=== PATIENT | male | born 1940 | race Caucasian/White ===

== ENCOUNTER → 2016-10-05 | Outpatient (CLI) | payer MEDICARE, OTHER ==
[2016-10-05 09:21] LABS: HEMOGLOBIN 13.6 g/dL (13.5-17.0); HGB HCT DIFFERENCE -0.2; MEAN CORPUSCULAR HEMOGLOBIN 28.5 pg (27.0-33.4); MEAN CORPUSCULAR HGB CONC 33.2 g/dL (32.0-36.0); MEAN CORPUSCULAR VOLUME 86 fl (80-97); RED BLOOD COUNT 4.77 10^6/uL (4.35-5.55); RED CELL DISTRIBUTION WIDTH 15.1 % (11.5-14.0); WHITE BLOOD COUNT 10.3 10^3/uL (4.0-10.5)
[2016-10-05 09:58] LABS: ALANINE AMINOTRANSFERASE 31 U/L (21-72); ALBUMIN 4.4 g/dL (3.5-5.0); ALKALINE PHOSPHATASE 79 U/L (38-126); ANION GAP 11 (5-19); ASPARTATE AMINO TRANSFERASE 18 U/L (17-59); BILIRUBIN,TOTAL 0.8 mg/dL (0.2-1.3); BLOOD UREA NITROGEN 23 mg/dL (7-20); CALCIUM 9.5 mg/dL (8.4-10.2); CARBON DIOXIDE 29 mmol/L (22-30); CHLORIDE 102 mmol/L (98-107); CHOLESTEROL 227.36 mg/dL (0-200); Direct HDL 51 mg/dL (>40); GLUCOSE 169 mg/dL (75-110); POTASSIUM 4.7 mmol/L (3.6-5.0); SODIUM 141.6 mmol/L (137-145); TOTAL PROTEIN 6.9 g/dL (6.3-8.2); TRIGLYCERIDES 189 mg/dL (<150)
[2016-10-05 10:09] LABS: DIRECT LDL 164 mg/dL (<100)
[2016-10-05 10:14] LABS: VLDL CHOLESTEROL 37.8 mg/dL (10-31)
== END ==
LOC: OD 08:18
PROVIDERS: ATTEND Internal Medicine Cardiovascular Disease
DX: I50.22 Chronic systolic (congestive) heart failure (principal); R06.02 Shortness of breath; I25.10 Atherosclerotic heart disease of native coronary artery without angina pectoris
CPT/HCPCS: 36415; 80053; 80061; 83880; 85027

== ENCOUNTER 2017-03-19 19:29 | Emergency (ER) | payer MEDICARE, OTHER ==
--- NOTE | 2017-03-19 20:12 | ER Document Report ---
ED Medical Screen (RME) - General Chief Complaint: High Blood Pressure Stated Complaint: WEAK,NOT FEELING WELL Time Seen by Provider: 03/19/17 20:07 Notes: Patient is a 76-year-old male who presents with his secondary to "not feeling well". Patient's states that he has been "more sleepy" at baseline. Patient has a history of dementia. Patient himself denies any complaints such as headache, nausea, vomiting, chest pain, abdominal pain, weakness or numbness. Patient has had no fevers, vomiting, diarrhea. states the patient's blood pressure has been recently elevated TRAVEL OUTSIDE OF THE [place] IN LAST 30 DAYS: No - Related Data Allergies/Adverse Reactions: atorvastatin calcium [From Lipitor] Adverse Reaction (Intermediate, Verified 19:57) myopathy Past Medical History - Past Medical History Cardiac Medical History: Reports: Hx Congestive Heart Failure, Hx Hypertension Renal/ Medical History: Denies: Hx Peritoneal Dialysis Psychiatric Medical History: Reports: Hx Dementia, Hx Depression Past Surgical History: Reports: Hx Cardiac Catheterization, Hx Cardiac Surgery - 5 bypass, Hx Coronary Stent - X2, last stent on 07/21/2015., Hx Gastric Bypass Surgery - 5 vessel CABG in 2002, Hx Open Heart Surgery - Immunizations Hx Diphtheria, Pertussis, Tetanus Vaccination: Yes Physical Exam - Vital signs Vitals: Temp Pulse Resp BP Pulse Ox 98 F 85 18 163/96 H 99 03/19/17 19:57 03/19/17 19:57 03/19/17 19:57 03/19/17 19:57 03/19/17 19:57 Course - Vital Signs Vital signs: Temp Pulse Resp BP Pulse Ox 98 F 85 18 163/96 H 99 03/19/17 19:57 03/19/17 19:57 03/19/17 19:57 03/19/17 19:57 03/19/17 19:57
--- NOTE | 2017-03-19 20:46 | RADIOLOGY REPORT (SQ) ---
EXAM DESCRIPTION: CHEST PA/LAT COMPLETED DATE/TIME: 03/19/2017 8:37 pm REASON FOR STUDY: PIT; weakness COMPARISON: August 2015 EXAM PARAMETERS: NUMBER OF VIEWS: two views TECHNIQUE: Digital Frontal and Lateral radiographic views of the chest acquired. RADIATION DOSE: NA LIMITATIONS: none FINDINGS: LUNGS AND PLEURA: No opacities, masses or pneumothorax. No pleural effusion. MEDIASTINUM AND HILAR STRUCTURES: No masses or contour abnormalities. HEART AND VASCULAR STRUCTURES: The configuration of the heart and mediastinal structures is unchanged . Tortuous calcified thoracic aorta is again identified. BONES: No acute findings. HARDWARE: AICD device is unchanged in position. Patient is status post median sternotomy. OTHER: Some elevation of the left hemidiaphragm is again identified. IMPRESSION: No significant interval change. No acute findings. Other findings as noted above TECHNICAL DOCUMENTATION: JOB ID: [id number] [employer]- All Rights Reserved
--- NOTE | 2017-03-19 21:31 | ER Document Report ---
ED Blood Pressure Problem - General Chief Complaint: High Blood Pressure Stated Complaint: BLOOD PRESSURE PROBLEM Time Seen by Provider: 03/19/17 20:07 Mode of Arrival: Ambulatory Information source: Patient, Relative TRAVEL OUTSIDE OF THE [place] IN LAST 30 DAYS: No - HPI Patient complains to provider of: High blood pressure Onset: This morning Onset/Duration: Gradual Quality of pain: No pain Notes: 76-year-old male who presents to the emergency room with his who reports that he was slightly more confused than normal this morning, and he slept slightly more than normal today as well, earlier this morning he was complaining of some abdominal pain, but had no nausea, vomiting or diarrhea, no chest pain or shortness of breath, no dysuria or hematuria, no change in urinary frequency, he has no complaints at time of my evaluation, his at bedside is him on the supplied most of the information - Related Data Allergies/Adverse Reactions: atorvastatin calcium [From Lipitor] Adverse Reaction (Intermediate, Verified 19:57) myopathy Past Medical History - General Information source: Patient - Social History Smoking Status: Former Smoker Family History: Reviewed & Not Pertinent Patient has suicidal ideation: No Patient has homicidal ideation: No - Past Medical History Cardiac Medical History: Reports: Hx Congestive Heart Failure, Hx Hypertension Renal/ Medical History: Denies: Hx Peritoneal Dialysis Psychiatric Medical History: Reports: Hx Dementia, Hx Depression Past Surgical History: Reports: Hx Cardiac Catheterization, Hx Cardiac Surgery - 5 bypass, Hx Coronary Stent - X2, last stent on 07/21/2015., Hx Gastric Bypass Surgery - 5 vessel CABG in 2002, Hx Open Heart Surgery - Immunizations Hx Diphtheria, Pertussis, Tetanus Vaccination: Yes Review of Systems - Review of Systems Constitutional: Malaise, Weakness EENT: No symptoms reported Cardiovascular: No symptoms reported Respiratory: No symptoms reported Gastrointestinal: See HPI Genitourinary: No symptoms reported Male Genitourinary: No symptoms reported Musculoskeletal: No symptoms reported Skin: No symptoms reported Hematologic/Lymphatic: No symptoms reported Neurological/Psychological: No symptoms reported -: Yes All other systems reviewed and negative Physical Exam - Vital signs Vitals: Temp Pulse Resp BP Pulse Ox 98 F 85 18 163/96 H 99 03/19/17 19:57 03/19/17 19:57 03/19/17 19:57 03/19/17 19:57 03/19/17 19:57 Interpretation: Hypertensive - General General appearance: Appears well, Alert - HEENT Head: Normocephalic, Atraumatic Eyes: Normal Pupils: PERRL - Respiratory Respiratory status: No respiratory distress Chest status: Nontender Breath sounds: Normal Chest palpation: Normal - Cardiovascular Rhythm: Regular Heart sounds: Normal auscultation Murmur: No - Abdominal Inspection: Normal Distension: No distension Bowel sounds: Normal Tenderness: Nontender Organomegaly: No organomegaly - Back Back: Normal, Nontender - Extremities General upper extremity: Normal inspection, Nontender, Normal color, Normal ROM , Normal temperature General lower extremity: Normal inspection, Nontender, Normal color, Normal ROM , Normal temperature, Normal weight bearing. No: Gil's sign - Neurological Neuro grossly intact: Yes Cognition: Normal Orientation: AAOx4 [place] Coma Scale Eye Opening: Spontaneous [place] Coma Scale Verbal: Oriented [place] Coma Scale Motor: Obeys Commands [place] Coma Scale Total: 15 Speech: Normal Motor strength normal: LUE, RUE, LLE, RLE Sensory: Normal - Psychological Associated symptoms: Normal affect, Normal mood - Skin Skin Temperature: Warm Skin Moisture: Dry Skin Color: Normal Course - Re-evaluation Re-evalutation: 03/19/17 23:53 Physical exam findings are unremarkable, abdomen is soft and nontender, in fact patient laughed while I was palpating his abdomen as I was apparently tickling him, vital signs are stable with an improved blood pressure while in the emergency room, findings were discussed with patient and spouse at bedside, he was advised to follow-up with his primary care provider or return if any additional concerns, patient and acknowledge understanding and agreement with this plan - Vital Signs Vital signs: Temp Pulse Resp BP Pulse Ox 98 F 85 26 H 190/96 H 98 03/19/17 19:57 03/19/17 19:57 03/19/17 23:00 03/19/17 23:00 03/19/17 23:00 - Laboratory Result Diagrams: 03/19/17 21:16 03/19/17 20:25 Laboratory results interpreted by me: 03/19/17 03/19/17 03/19/17 20:25 20:25 21:16 Hgb 12.9 L RDW 15.1 H BUN 23 H Glucose 127 H NT-Pro-B Natriuret Pep 3730 H - Diagnostic Test Radiology reviewed: Image reviewed, Reports reviewed Discharge - Discharge Clinical Impression: Generalized weakness Condition: Stable Disposition: HOME, SELF-CARE Instructions: High Blood Pressure ([facility]) Additional Instructions: Follow up with your primary care provider in one to 2 days. Return to the emergency room immediately if symptoms worsen or any additional concerns.
[2017-03-19 21:35] LABS: ABSOLUTE BASOPHILS # (AUTO) 0.1 10^3/uL (0.0-0.2); ABSOLUTE EOSINOPHILS # (AUTO) 0.3 10^3/uL (0.0-0.6); ABSOLUTE LYMPHOCYTES (AUTO) 2.8 10^3/uL (0.5-4.7); ABSOLUTE MONOCYTES (AUTO) 0.8 10^3/uL (0.1-1.4); ABSOLUTE NEUT (AUTO) 6.4 10^3/uL (1.7-8.2); BASOPHILS % (AUTO) 1.1 % (0-2); EOSINOPHILS % (AUTO) 2.8 % (0-6); HEMATOCRIT 39.3 % (37.9-51.0); HEMOGLOBIN 12.9 g/dL (13.5-17.0); HGB HCT DIFFERENCE -0.6; LYMPHOCYTES % (AUTO) 26.5 % (13-45); MEAN CORPUSCULAR HEMOGLOBIN 28.2 pg (27.0-33.4); MEAN CORPUSCULAR HGB CONC 32.8 g/dL (32.0-36.0); MEAN CORPUSCULAR VOLUME 86 fl (80-97); MONOCYTES % (AUTO) 7.9 % (3-13); RED BLOOD COUNT 4.56 10^6/uL (4.35-5.55); RED CELL DISTRIBUTION WIDTH 15.1 % (11.5-14.0); SEGMENTED NEUTROPHILS % (AUTO) 61.7 % (42-78); WHITE BLOOD COUNT 10.4 10^3/uL (4.0-10.5)
[2017-03-19 22:02] LABS: ANION GAP 11 (5-19); BLOOD UREA NITROGEN 23 mg/dL (7-20); CALCIUM 9.3 mg/dL (8.4-10.2); CARBON DIOXIDE 26 mmol/L (22-30); CHLORIDE 102 mmol/L (98-107); CREATININE RESULT 1.06 mg/dL (0.52-1.25); GLUCOSE 127 mg/dL (75-110); POTASSIUM 4.8 mmol/L (3.6-5.0); SODIUM 138.8 mmol/L (137-145)
--- NOTE | 2017-03-19 22:04 | EKG REPORT ---
SEVERITY:- ABNORMAL ECG - A-V DUAL-PACED COMPLEXES W/ SOME INHIBITION VPCs : Confirmed by: Mitchell Wagner 19-Mar-2017 22:03:56
[2017-03-19 22:14] LABS: TROPONIN I 0.018 ng/mL
[2017-03-19 23:01] VITALS: BP 190/96
== END 2017-03-19 23:10 | disposition home or self-care (01) ==
LOC: ER 19:29
DX: R53.1 Weakness (principal); R53.81 Other malaise; R41.0 Disorientation, unspecified; I10 Essential (primary) hypertension; Z95.1 Presence of aortocoronary bypass graft; Z98.61 Coronary angioplasty status; Z98.84 Bariatric surgery status
CPT/HCPCS: 36415; 71020; 80048; 83880; 84484; 85025; 93005; 93010; 99284

== ENCOUNTER 2018-10-06 22:16 | Emergency (ER) | payer MEDICARE, OTHER ==
--- NOTE | 2018-10-06 23:33 | ER Document Report ---
ED General - General Chief Complaint: Chest Pain Stated Complaint: POSSIBLE ASSAULT/CHEST PAIN Time Seen by Provider: 10/06/18 23:33 Mode of Arrival: Ambulatory Information source: Parent, Relative Notes: HISTORY OF PRESENT ILLNESS: Patient is a 78-year-old male with a past medical history of advanced dementia who presents with behavior changes and acute agitation. Location: Global Onset: Chronic Provocation: "I do not know why he has these episodes" Quality: Aggression Radiation: None Severity: Severe Timing: Intermittent REVIEW OF SYSTEMS: CONSTITUTIONAL : Denies fever or chills, no sweats. Denies recent illness. EENT: Denies eye, ear, throat, or mouth pain or symptoms. Denies nasal or sinus congestion. CARDIOVASCULAR: Denies chest pain. RESPIRATORY: Denies cough, cold, or chest congestion. Denies shortness of breath, difficulty breathing, or wheezing. GASTROINTESTINAL: Denies abdominal pain. Denies nausea, vomiting, or diarrhea. Denies constipation. GENITOURINARY: Denies difficulty urinating, painful urination, burning, frequency, or blood in urine. MUSCULOSKELETAL: Denies neck or back pain or joint pain or swelling. SKIN: Denies rash or skin lesions. HEMATOLOGIC : Denies easy bruising or bleeding. LYMPHATIC: Denies swollen, enlarged glands. NEUROLOGICAL: Denies altered mental status or loss of consciousness. Denies headache. Denies weakness or paralysis or loss of use of either side. Denies problems with gait or speech. Denies sensory or motor loss. PSYCHIATRIC: Positive for episodic agitation/aggression. Denies anxiety or stress or depression. All other systems reviewed and negative. PHYSICAL EXAMINATION: GENERAL: Well-appearing, well-nourished and in no acute distress. HEAD: Atraumatic, normocephalic. No scalp deformity, depression, or crepitance. EYES: Pupils are 3 mm and equal/round/reactive to light, extraocular movements intact, sclera anicteric, conjunctiva are normal. ENT: Nares patent bilaterally, oropharynx clear without exudates or palatal petechia. Moist mucous membranes. No tonsil hypertrophy. NECK: Normal range of motion, supple without lymphadenopathy. LUNGS: Breath sounds present, equal, and clear to auscultation bilaterally. No wheezes, rales, or rhonchi. HEART: Regular rate and rhythm without murmurs, rubs, or gallops. 2+ peripheral pulses. Normal capillary refill. ABDOMEN: Soft, nontender, nondistended. Normoactive bowel sounds. No guarding, no rebound. No masses appreciated. BACK: Normal contour, no midline tenderness. Rectal exam deferred. GENITAL: Deferred. EXTREMITIES: Normal range of motion, no pitting or edema. No cyanosis. NEUROLOGICAL: No focal neurological deficits. Moves all extremities spontaneously and on command. PSYCH: Normal mood, flat affect. No suicidal thoughts/ideations. No homocidal thoughts/ideations. No hallucinations. SKIN: Warm, dry, normal turgor, no rashes or lesions noted. ASSESSMENT AND PLAN: This patient is a 78-year-old male who presents with acute on chronic agitation secondary to his advanced dementia. 1. Will give oral Haldol and reassess. 2. Will likely discharge home. TRAVEL OUTSIDE OF THE [place] IN LAST 30 DAYS: No - Related Data Allergies/Adverse Reactions: atorvastatin calcium [From Lipitor] Adverse Reaction (Intermediate, Verified 03/19/17 19:57) myopathy Past Medical History - General Information source: Patient, Relative Cannot obtain history due to: Other - Advanced dementia - Social History Smoking Status: Unknown if Ever Smoked Chew tobacco use (# tins/day): No Frequency of alcohol use: None Drug Abuse: None Lives with: Family Family History: Reviewed & Not Pertinent Patient has suicidal ideation: No Patient has homicidal ideation: No - Past Medical History Cardiac Medical History: Reports: Hx Congestive Heart Failure, Hx Hypertension Pulmonary Medical History: Reports: Hx COPD EENT Medical History: Reports: None Neurological Medical History: Reports: None Endocrine Medical History: Reports: None Renal/ Medical History: Reports: None. Denies: Hx Peritoneal Dialysis Malignancy Medical History: Reports None GI Medical History: Reports: None Musculoskeletal Medical History: Reports None Skin Medical History: Reports None Psychiatric Medical History: Reports: Hx Dementia, Hx Depression Traumatic Medical History: Reports: None Infectious Medical History: Reports: None Past Surgical History: Reports: Hx Cardiac Catheterization, Hx Cardiac Surgery - 5 bypass, Hx Coronary Stent - X2, last stent on 07/21/2015., Hx Gastric Bypass Surgery - 5 vessel CABG in 2002, Hx Open Heart Surgery - Immunizations Immunizations up to date: Yes Hx Diphtheria, Pertussis, Tetanus Vaccination: Yes Physical Exam - Vital signs Vitals: Temp 98.6 F 10/06/18 22:22 Course - Vital Signs Vital signs: Temp Pulse Resp BP Pulse Ox 98.6 F 10/06/18 22:22 Discharge - Discharge Clinical Impression: Advanced dementia Condition: Good Disposition: HOME, SELF-CARE Instructions: Dementia ([facility]) Additional Instructions: You have been evaluated in the Emergency Department for behavioral changes. Please follow-up with your primary physician as instructed in 1-2 weeks. Return to the Emergency Department if you experience increased aggression, hallucinations, thoughts of hurting yourself or other people, or any other concerning symptoms. Prescriptions: Haloperidol [Haldol 5 mg Tablet] 5 mg PO BID PRN #30 tablet PRN Reason: Anxiety/Agitation Referrals: ARNOLDO WHIPPLE MD [NO LOCAL MD] - Follow up as needed Print Language: Yi
[2018-10-07] MEDS ORDERED: HALOPERIDOL 5 MG TABLET PO ONE (00:05)
[2018-10-07 01:24] VITALS: BP 184/78
--- NOTE | 2018-10-07 21:35 | EKG REPORT ---
SEVERITY:- ABNORMAL ECG - ATRIAL-SENSED VENTRICULAR-PACED COMPLEXES INCOMPLETE RBBB AND LAFB : Confirmed by: Mitchell Wagner 07-Oct-2018 21:34:53
== END 2018-10-07 01:24 | disposition home or self-care (01) ==
LOC: ER 22:16
DX: F03.90 Unspecified dementia, unspecified severity, without behavioral disturbance, psychotic disturbance, mood disturbance, and anxiety (principal); R07.9 Chest pain, unspecified; R45.1 Restlessness and agitation; I50.9 Heart failure, unspecified; I10 Essential (primary) hypertension; J44.9 Chronic obstructive pulmonary disease, unspecified
CPT/HCPCS: 93005; 99285; 93010; A9270

== ENCOUNTER 2018-10-07 11:29 | Emergency (ER) | payer MEDICARE, OTHER ==
--- NOTE | 2018-10-07 12:52 | ER Document Report ---
ED Medical Screen (RME) - General Chief Complaint: Other Stated Complaint: SHORT OF BREATH Time Seen by Provider: 10/07/18 12:29 Notes: 78-year-old male to the emergency department for evaluation of pacemaker going off. Reportedly pacemaker fired 3 times yesterday and then 2 more times after midnight so a total of 5 discharges according to the cardiology office the called the patient this morning to report the defibrillated events. Apparently patient was in the ER last night because of erratic behavior. Patient has dementia. Denies any complaints at this time. I have greeted and performed a rapid initial assessment of this patient. A comprehensive ED assessment and evaluation of the patient, analysis of test results and completion of the medical decision making process will be conducted by additional ED providers. TRAVEL OUTSIDE OF THE [place] IN LAST 30 DAYS: No - Related Data Allergies/Adverse Reactions: atorvastatin calcium [From Lipitor] Adverse Reaction (Intermediate, Verified 10/07/18 11:48) myopathy Past Medical History - Past Medical History Cardiac Medical History: Reports: Hx Congestive Heart Failure, Hx Hypertension Pulmonary Medical History: Reports: Hx COPD Renal/ Medical History: Denies: Hx Peritoneal Dialysis Psychiatric Medical History: Reports: Hx Dementia, Hx Depression Past Surgical History: Reports: Hx Cardiac Catheterization, Hx Cardiac Surgery - 5 bypass, Hx Coronary Stent - X2, last stent on 07/21/2015., Hx Gastric Bypass Surgery - 5 vessel CABG in 2002, Hx Open Heart Surgery - Immunizations Immunizations up to date: Yes Hx Diphtheria, Pertussis, Tetanus Vaccination: Yes
[2018-10-07 13:20] LABS: ABSOLUTE BASOPHILS # (AUTO) 0.1 10^3/uL (0.0-0.2); ABSOLUTE EOSINOPHILS # (AUTO) 0.1 10^3/uL (0.0-0.6); ABSOLUTE LYMPHOCYTES (AUTO) 2.1 10^3/uL (0.5-4.7); ABSOLUTE MONOCYTES (AUTO) 0.8 10^3/uL (0.1-1.4); ABSOLUTE NEUT (AUTO) 6.9 10^3/uL (1.7-8.2); BASOPHILS % (AUTO) 0.9 % (0-2); EOSINOPHILS % (AUTO) 0.8 % (0-6); HEMATOCRIT 41.1 % (37.9-51.0); LYMPHOCYTES % (AUTO) 21.2 % (13-45); MEAN CORPUSCULAR HEMOGLOBIN 29.2 pg (27.0-33.4); MEAN CORPUSCULAR HGB CONC 34.1 g/dL (32.0-36.0); MEAN CORPUSCULAR VOLUME 86 fl (80-97); MONOCYTES % (AUTO) 8.2 % (3-13); PLATELET COUNT 197 10^3/uL (150-450); RED BLOOD COUNT 4.78 10^6/uL (4.35-5.55); SEGMENTED NEUTROPHILS % (AUTO) 68.9 % (42-78); TOTAL CELLS COUNTED % (AUTO) 100 %
[2018-10-07 13:38] LABS: ALANINE AMINOTRANSFERASE 18 U/L (21-72); ALBUMIN 4.6 g/dL (3.5-5.0); ALKALINE PHOSPHATASE 87 U/L (38-126); ANION GAP 11 (5-19); ASPARTATE AMINO TRANSFERASE 28 U/L (17-59); BILIRUBIN,DIRECT 0.3 mg/dL (0.0-0.4); BILIRUBIN,TOTAL 0.8 mg/dL (0.2-1.3); BLOOD UREA NITROGEN 22 mg/dL (7-20); CALCIUM 9.7 mg/dL (8.4-10.2); CARBON DIOXIDE 29 mmol/L (22-30); CHLORIDE 102 mmol/L (98-107); CREATINE KINASE 139 U/L (55-170); GLUCOSE 207 mg/dL (75-110); POTASSIUM 4.5 mmol/L (3.6-5.0); SODIUM 141.8 mmol/L (137-145); TOTAL PROTEIN 7.2 g/dL (6.3-8.2)
[2018-10-07 13:49] LABS: CREATINE KINASE MB 4.62 ng/mL (<4.55)
[2018-10-07 13:52] LABS: TROPONIN I 0.344 ng/mL
[2018-10-07 14:40] LABS: APPEARANCE,URINE CLEAR; BILIRUBIN,URINE NEGATIVE (NEGATIVE); COLOR,URINE YELLOW; GLUCOSE, URINE NEGATIVE (NEGATIVE); KETONES,URINE NEGATIVE (NEGATIVE); LEUKOCYTE ESTERASE,URINE NEGATIVE (NEGATIVE); NITRITE,URINE NEGATIVE (NEGATIVE); PROTEIN,URINE NEGATIVE (NEGATIVE); URINE SPECIFIC GRAVITY 1.016; UROBILINOGEN,URINE NEGATIVE mg/dL (<2.0)
[2018-10-07] MEDS ORDERED: ASPIRIN 81 MG TABLET, CHEWABLE PO ONE (14:42)
--- NOTE | 2018-10-07 14:47 | ER Document Report ---
ED General - General Chief Complaint: Other Stated Complaint: SHORT OF BREATH Time Seen by Provider: 10/07/18 12:29 Mode of Arrival: Ambulatory Information source: Patient, Relative, [facility] Records Cannot obtain history due to: Dementia Notes: 78-year-old male with hypertension, COPD, congestive heart failure, coronary artery disease with history of CABG and defibrillator placement presents via private vehicle from home after they received a call phone call from [facility] stating that the patient's defibrillator has gone off for times overnight. Patient's provides the history as the patient is uncooperative with questioning. Patient was seen here yesterday due to behavioral changes secondary to his dementia. He was seen, evaluated and discharged home. Patient denies any chest pain, shortness of breath, lower extremity edema. is at the bedside and states that the patient's behavior has progressively worsened. He is refusing to take his medications which include Plavix, lisinopril, Lasix, carvedilol. Patient denies feeling any defibrillator shocks. TRAVEL OUTSIDE OF THE [place] IN LAST 30 DAYS: No - HPI Onset: Other Quality of pain: No pain Severity: None Pain Level: Denies Associated symptoms: denies: Chest pain, Fever, Nausea, Vomiting, Shortness of breath Exacerbated by: Denies Relieved by: Denies Similar symptoms previously: Yes Recently seen / treated by doctor: Yes - Related Data Allergies/Adverse Reactions: atorvastatin calcium [From Lipitor] Adverse Reaction (Intermediate, Verified 10/07/18 11:48) myopathy Past Medical History - General Information source: Relative, [facility] Records Cannot obtain history due to: Dementia - Social History Smoking Status: Never Smoker Frequency of alcohol use: None Drug Abuse: None Lives with: Family Family History: Reviewed & Not Pertinent Patient has suicidal ideation: No Patient has homicidal ideation: No - Past Medical History Cardiac Medical History: Reports: Hx Congestive Heart Failure, Hx Hypertension Pulmonary Medical History: Reports: Hx COPD Renal/ Medical History: Denies: Hx Peritoneal Dialysis Psychiatric Medical History: Reports: Hx Dementia, Hx Depression Past Surgical History: Reports: Hx Cardiac Catheterization, Hx Cardiac Surgery - 5 bypass, Hx Coronary Stent - X2, last stent on 07/21/2015., Hx Gastric Bypass Surgery - 5 vessel CABG in 2002, Hx Open Heart Surgery - Immunizations Immunizations up to date: Yes Hx Diphtheria, Pertussis, Tetanus Vaccination: Yes Review of Systems - Review of Systems -: Yes ROS unobtainable due to patient's medical condition Physical Exam - Vital signs Vitals: Pulse Ox 99 10/07/18 13:09 - Notes Notes: PHYSICAL EXAMINATION: GENERAL: Well-appearing, well-nourished and in no acute distress. HEAD: Atraumatic, normocephalic. EYES: Pupils equal round and reactive to light, extraocular movements intact, sclera anicteric, conjunctiva are normal. ENT: Nares patent, oropharynx clear without exudates. Moist mucous membranes. NECK: Normal range of motion, supple without lymphadenopathy LUNGS: Breath sounds clear to auscultation bilaterally and equal. No wheezes rales or rhonchi. HEART: Regular rate and rhythm without murmurs ABDOMEN: Soft, nontender, nondistended abdomen. No guarding, no rebound. No masses appreciated. Musculoskeletal: Normal range of motion, no pitting or edema. No cyanosis. NEUROLOGICAL: Cranial nerves grossly intact. Normal speech normal sensory, motor exams. Alert and oriented x2 PSYCH: Uncooperative SKIN: Warm, Dry, normal turgor, no rashes or lesions noted. Course - Re-evaluation Re-evalutation: Laboratory 10/07/18 10/07/18 10/07/18 13:08 13:08 13:08 WBC 10.0 RBC 4.78 Hgb 14.0 Hct 41.1 MCV 86 MCH 29.2 MCHC 34.1 RDW 14.0 Plt Count 197 Seg Neutrophils % 68.9 Lymphocytes % 21.2 Monocytes % 8.2 Eosinophils % 0.8 Basophils % 0.9 Absolute Neutrophils 6.9 Absolute Lymphocytes 2.1 Absolute Monocytes 0.8 Absolute Eosinophils 0.1 Absolute Basophils 0.1 Sodium 141.8 Potassium 4.5 Chloride 102 Carbon Dioxide 29 Anion Gap 11 BUN 22 H Creatinine 1.07 Est GFR ( Amer) > 60 Est GFR (Non-Af Amer) > 60 Glucose 207 H Calcium 9.7 Total Bilirubin 0.8 Direct Bilirubin 0.3 Neonat Total Bilirubin Not Reportable Neonat Direct Bilirubin Not Reportable Neonat Indirect Bili Not Reportable AST 28 ALT 18 L Alkaline Phosphatase 87 Creatine Kinase 139 CK-MB (CK-2) 4.62 H Troponin I 0.344 Total Protein 7.2 Albumin 4.6 Urine Color Urine Appearance Urine pH Ur Specific [place] Urine Protein Urine Glucose (UA) Urine Ketones Urine Blood Urine Nitrite Urine Bilirubin Urine Urobilinogen Ur Leukocyte Esterase Urine WBC (Auto) Urine RBC (Auto) U Hyaline Cast (Auto) Urine Mucus (Auto) Urine Ascorbic Acid 10/07/18 10/07/18 14:00 14:50 WBC RBC Hgb Hct MCV MCH MCHC RDW Plt Count Seg Neutrophils % Lymphocytes % Monocytes % Eosinophils % Basophils % Absolute Neutrophils Absolute Lymphocytes Absolute Monocytes Absolute Eosinophils Absolute Basophils Sodium Potassium Chloride Carbon Dioxide Anion Gap BUN Creatinine Est GFR ( Amer) Est GFR (Non-Af Amer) Glucose Calcium Total Bilirubin Direct Bilirubin Neonat Total Bilirubin Neonat Direct Bilirubin Neonat Indirect Bili AST ALT Alkaline Phosphatase Creatine Kinase CK-MB (CK-2) Troponin I 0.322 Total Protein Albumin Urine Color YELLOW Urine Appearance CLEAR Urine pH 6.0 Ur Specific [place] 1.016 Urine Protein NEGATIVE Urine Glucose (UA) NEGATIVE Urine Ketones NEGATIVE Urine Blood NEGATIVE Urine Nitrite NEGATIVE Urine Bilirubin NEGATIVE Urine Urobilinogen NEGATIVE Ur Leukocyte Esterase NEGATIVE Urine WBC (Auto) 1 Urine RBC (Auto) 1 U Hyaline Cast (Auto) 1 Urine Mucus (Auto) RARE Urine Ascorbic Acid NEGATIVE Chest X-Ray 10/07/18 14:59 IMPRESSION: Stable enlarged cardiac silhouette without evidence of acute cardiopulmonary process. Temp Pulse Resp BP Pulse Ox 98.1 F 25 H 198/98 H 94 10/07/18 17:32 10/07/18 17:13 10/07/18 17:13 10/07/18 17:13 10/07/18 14:58 78-year-old male with dementia, coronary artery disease presents via private vehicle after a phone call from his [employer] developer's office told him that he was shocked 4 times overnight. Patient suffers from severe dementia. He is not cooperative with history or exam. He was seen here yesterday for agitation, altered mental status and did receive Haldol yesterday and was discharged home. reports that the patient has not been refusing to take his medications. She states that she has found them in his sock, in the garbage. Upon arrival patient was placed on cardiac catheterization technologist and EKG was obtained. Patient declining aspirin. Patient's defibrillator was interrogated awaiting results. Spoke to [employer]'s treasury representative who states that the patient was shocked 4 times yesterday evening starting at 9 PM. He reports an arrhythmia that appeared to be atrial fibrillation which was shocked but the patient's ventricular rate remained greater than 200 and after the fourth shock patient returned to normal sinus rhythm. Spoke to the who is caregiver for the patient regarding admission and transfer to [facility] where the patient's [employer] developer is. declines admission at this time. Advised that she would have to leave AGAINST MEDICAL ADVICE. Patient was seen by social work who provided that patient's information regarding home health care. Patient was discharged home AGAINST MEDICAL ADVICE. 10/07/18 15:00 10/07/18 15:01 10/07/18 23:01 - Vital Signs Vital signs: Temp Pulse Resp BP Pulse Ox 98.1 F 25 H 198/98 H 94 10/07/18 17:32 10/07/18 17:13 10/07/18 17:13 10/07/18 17:13 - Laboratory Result Diagrams: 10/07/18 13:08 10/07/18 13:08 Laboratory results interpreted by me: 10/07/18 10/07/18 13:08 13:08 BUN 22 H Glucose 207 H ALT 18 L CK-MB (CK-2) 4.62 H - Diagnostic Test Radiology reviewed: Image reviewed, Reports reviewed - EKG Interpretation by Me Rate: Normal Rhythm: Other - Ventricularly paced rhythm [place]/QRS: RBBB When compared to previous EKG there are: No significant change, Other - Repeat EKG was obtained and now shows patient be in sinus rhythm with a right bundle branch block. Critical Care Note - Critical Care Note Total time excluding time spent on procedures (mins): 30 - Minutes of critical care time spent in direct contact evaluating and reevaluating the patient, treating symptoms, reviewing labs and studies and speaking with family and consultants excluding any procedures Discharge - Discharge Clinical Impression: Elevated troponin, History of ventricular tachycardia CAD (coronary artery disease) Qualifiers: Coronary Disease-Associated Artery/Lesion type: unspecified vessel or lesion type [place] vs. transplanted heart: [place] heart Associated angina: without angina Qualified Code(s): I25.10 - Atherosclerotic heart disease of [place] coronary artery without angina pectoris Dementia Qualifiers: Dementia type: unspecified type Dementia behavioral disturbance: with behavioral disturbance Qualified Code(s): F03.91 - Unspecified dementia with behavioral disturbance HTN (hypertension) Qualifiers: Hypertension type: unspecified Qualified Code(s): I10 - Essential (primary) hypertension Condition: Fair Disposition: AGAINST MEDICAL ADVICE Instructions: Dementia ([facility]) Additional Instructions: Your interrogation revealed that he went into a dangerous rhythm yesterday evening requiring a shock. This will likely to continue unless you take your medication as prescribed. It was advised that you be transferred to [facility] but at this time it was decided that you will be taken home. Please follow-up with your [employer] developer as soon as possible. Forms: Elevated Blood Pressure
--- NOTE | 2018-10-07 15:50 | RADIOLOGY REPORT (SQ) ---
EXAM DESCRIPTION: CHEST SINGLE VIEW COMPLETED DATE/TIME: 10/07/2018 3:28 pm REASON FOR STUDY: Coronary artery disease defibrillator shock COMPARISON: 03/19/2017 EXAM PARAMETERS: NUMBER OF VIEWS: One view. TECHNIQUE: Single frontal radiographic view of the chest acquired. RADIATION DOSE: NA LIMITATIONS: None. FINDINGS: LUNGS AND PLEURA: Unchanged elevation of the left hemidiaphragm. No focal consolidation, pleural effusion or pneumothorax. MEDIASTINUM AND HILAR STRUCTURES: No discrete mass. HEART AND VASCULAR STRUCTURES: Enlarged heart, stable. Atherosclerotic aorta. BONES: Median sternotomy changes. No acute findings. Multiple old right posterior rib fractures. HARDWARE: Left-sided cardiac pacer with leads overlying right atrium and right ventricle. Unchanged circular metallic densities overlying right heart. OTHER: No other significant finding. IMPRESSION: Stable enlarged cardiac silhouette without evidence of acute cardiopulmonary process. TECHNICAL DOCUMENTATION: JOB ID: [id number] [employer]- All Rights Reserved Reading location - IP/workstation name: [email or web address]
[2018-10-07] MEDS ORDERED: CARVEDILOL 12.5 MG TABLET PO ONE (16:01)
[2018-10-07 17:21] VITALS: BP 198/98
--- NOTE | 2018-10-07 21:34 | EKG REPORT ---
SEVERITY:- ABNORMAL ECG - SINUS RHYTHM RIGHT BUNDLE BRANCH BLOCK CONSIDER ANTERIOR INFARCT : Confirmed by: Mitchell Wagner 07-Oct-2018 21:33:46
--- NOTE | 2018-10-07 21:35 | EKG REPORT ---
SEVERITY:- ABNORMAL ECG - ATRIAL AND VENTRICULAR-PACED COMPLEXES RIGHT BUNDLE BRANCH BLOCK : Confirmed by: Mitchell Wagner 07-Oct-2018 21:34:29
== END 2018-10-07 17:33 | disposition left against medical advice (07) ==
LOC: ER 11:29
DX: I25.10 Atherosclerotic heart disease of native coronary artery without angina pectoris (principal); I11.0 Hypertensive heart disease with heart failure; I50.9 Heart failure, unspecified; R74.8 Abnormal levels of other serum enzymes; F03.91 Unspecified dementia, unspecified severity, with behavioral disturbance; I45.10 Unspecified right bundle-branch block; J44.9 Chronic obstructive pulmonary disease, unspecified; Z86.79 Personal history of other diseases of the circulatory system; Z95.810 Presence of automatic (implantable) cardiac defibrillator; Z95.1 Presence of aortocoronary bypass graft; Z91.14 Patient's other noncompliance with medication regimen; Z95.5 Presence of coronary angioplasty implant and graft
CPT/HCPCS: 93005; 99283; 36415; 82553; 82550; 85025; 80053; 81001; 84484; 71045; 93010; A9270

== ENCOUNTER 2018-10-24 21:08 | Emergency (ER) | payer MEDICARE, OTHER ==
--- NOTE | 2018-10-24 21:31 | RADIOLOGY REPORT (SQ) ---
EXAM DESCRIPTION: CT HEAD WITHOUT IV CONTRAST COMPLETED DATE/TME: 10/24/2018 00:00 CLINICAL HISTORY: 78 years, Male, storke alert COMPARISON: None. TECHNIQUE: 200 Images stored on PACS. All CT scanners at this facility use dose modulation, iterative reconstruction, and/or weight based dosing when appropriate to reduce radiation dose to as low as reasonably achievable (ALARA). [facility]: Dose Right [facility]: CareDose [facility]: Dose Right [facility]: Teradose 4D [facility]: Healthrageous LIMITATIONS: None. FINDINGS: The globes are intact. The paranasal sinuses and mastoid air cells are unremarkable. No displaced or depressed skull fracture. No intra or extra-axial hemorrhage. CT is limited for evaluation of acute infarct. No CT evidence for large or territorial acute infarct. Age-appropriate atrophy. Mild small vessel ischemic change. IMPRESSION: Atrophy with small vessel ischemic change. Negative for acute intracranial abnormality TECHNICAL DOCUMENTATION: Quality ID # [id number]: Final reports with documentation of one or more dose reduction techniques (e.g., Automated exposure control, adjustment of the mA and/or kV according to patient size, use of iterative reconstruction technique) copyright 2011 [employer]- All Rights Reserved
--- NOTE | 2018-10-24 21:41 | RADIOLOGY REPORT (SQ) ---
EXAM DESCRIPTION: XR CHEST 1 VIEW COMPLETED DATE/TME: 10/24/2018 00:00 CLINICAL HISTORY: 78 years, Male, STROKE ALERT COMPARISON: 10/07/2018 chest NUMBER OF VIEWS: 1 TECHNIQUE: AP chest LIMITATIONS: None. FINDINGS: Stable cardiomegaly and postsurgical change. Elevation of the left hemidiaphragm. Osteopenia. COPD. No pneumothorax. Old right rib fractures. IMPRESSION: Stable cardiomegaly and postsurgical change. COPD. Lungs are clear copyright 2010 [employer]- All Rights Reserved
--- NOTE | 2018-10-24 22:15 | ER Document Report ---
ED General - General Chief Complaint: Neck Problem Stated Complaint: NECK PAIN Time Seen by Provider: 10/24/18 21:47 Primary Care Provider: XU INMAN NP [Primary Care Provider] - Follow up as needed Cannot obtain history due to: Dementia Notes: Patient is a 78-year-old male to have a past medical history of dementia, dysrhythmias with AICD in place, hypertension, presents with complaints of left- sided neck pain earlier today. At the time of my evaluation the patient denies any complaints. Family states that he was crying out in pain stating that the left side of his neck and chest wall hurt but he now denies any discomfort of any kind. Family states that this is not happened before in the past. Nothing seemed to improve or worsen his symptoms been present. No injury or fall. Has not seen his primary doctor regarding today's concerns. History is otherwise limited secondary to the patient's advanced dementia. TRAVEL OUTSIDE OF THE [place] IN LAST 30 DAYS: No - Related Data Allergies/Adverse Reactions: atorvastatin calcium [From Lipitor] Adverse Reaction (Intermediate, Verified 10/07/18 11:48) myopathy Past Medical History - General Information source: Relative Cannot obtain history due to: Dementia - Social History Smoking Status: Former Smoker Frequency of alcohol use: None Drug Abuse: None Lives with: Spouse/Significant other Family History: Reviewed & Not Pertinent - Past Medical History Cardiac Medical History: Reports: Hx Congestive Heart Failure, Hx Hypertension Pulmonary Medical History: Reports: Hx COPD Renal/ Medical History: Denies: Hx Peritoneal Dialysis Psychiatric Medical History: Reports: Hx Dementia, Hx Depression Past Surgical History: Reports: Hx Cardiac Catheterization, Hx Cardiac Surgery - 5 bypass, Hx Coronary Stent - X2, last stent on 07/21/2015., Hx Gastric Bypass Surgery - 5 vessel CABG in 2002, Hx Open Heart Surgery - Immunizations Immunizations up to date: Yes Hx Diphtheria, Pertussis, Tetanus Vaccination: Yes Review of Systems - Review of Systems Notes: Constitutional: Negative for fever. HENT: Negative for sore throat. Eyes: Negative for visual changes. Cardiovascular: Negative for chest pain. Respiratory: Negative for shortness of breath. Gastrointestinal: Negative for abdominal pain, vomiting or diarrhea. Genitourinary: Negative for dysuria. Musculoskeletal: Negative for back pain. Positive for left-sided neck pain now resolved Skin: Negative for rash. Neurological: Negative for headaches, weakness or numbness. 10 point ROS negative except as marked above and in HPI. Physical Exam - Vital signs Vitals: Pulse Resp BP Pulse Ox 77 18 131/77 H 99 10/24/18 21:13 10/24/18 21:13 10/24/18 21:13 10/24/18 21:13 Interpretation: Normal Notes: PHYSICAL EXAMINATION: GENERAL: Well-appearing, well-nourished and in no acute distress. HEAD: Atraumatic, normocephalic. EYES: Pupils equal round and reactive to light, extraocular movements intact, sclera anicteric, conjunctiva are normal. ENT: nares patent, oropharynx clear without exudates. Moist mucous membranes. NECK: Normal range of motion, supple without lymphadenopathy LUNGS: Breath sounds clear to auscultation bilaterally and equal. No wheezes rales or rhonchi. HEART: Regular rate and rhythm without murmurs ABDOMEN: Soft, nontender, normoactive bowel sounds. No guarding, no rebound. No masses appreciated. EXTREMITIES: Normal range of motion, no pitting or edema. No cyanosis. NEUROLOGICAL: No focal neurological deficits. Moves all extremities spontaneously and on command. PSYCH: Somewhat somnolent but responds to voice. Oriented only to person. SKIN: Warm, Dry, normal turgor, no rashes or lesions noted. Course - Re-evaluation Re-evalutation: 10/24/18 22:14 Patient is quite demented, unable to provide meaningful history but the history is related by the at the bedside is that earlier tonight the patient was screaming that his left side of his neck and chest wall were hurting. The patient now denies any complaints of any kind. Differential includes possible discharge of his AICD. Interrogation pending for this [employer] device. Muscle spasm would be on the consideration although this would be quite unusual presentation. Less likely ACS. Chest x-ray is clear. Family also related concern of possible drooling from the left corner of the mouth although patient has no appreciable facial droop, equal and symmetric nasolabial folds. The patient is globally disoriented and lethargic but has no focal neurologic deficits on exam. His symptoms have been present for 2 days in regards to the drooling and CT of the head is noted to be unremarkable effectively excluding acute CVA given duration of symptoms. 10/25/18 00:07 Interrogation of the device does not reveal any discharges the device. Labs unremarkable. Patient unable to urinate, refusing straight catheter. Becoming increasingly agitated, disoriented family reports history of dementia with sundowning. At this point I do not think there is any further benefit in keepin g the patient here in the emergency department given a benign workup thus far in the patient becoming increasingly agitated. Family comfortable with discharge home. - Vital Signs Vital signs: Temp Pulse Resp BP Pulse Ox 97.6 F 77 21 H 128/60 H 75 L 10/24/18 21:34 10/24/18 21:13 10/24/18 23:01 10/24/18 23:00 10/25/18 00:09 - Laboratory Result Diagrams: 10/24/18 21:50 10/24/18 21:50 Laboratory results interpreted by me: 10/24/18 10/24/18 21:50 21:50 RBC 4.33 L Hgb 12.7 L Hct 37.5 L RDW 14.4 H Carbon Dioxide 31 H BUN 32 H Creatinine 1.50 H Est GFR ( Amer) 55 L Est GFR (Non-Af Amer) 45 L Glucose 140 H - Diagnostic Test Radiology reviewed: Image reviewed, Reports reviewed Radiology results interpreted by me: 10/25/18 00:08 CT head: No acute intracranial bleed or mass Chest x-ray: No acute infiltrate Discharge - Discharge Clinical Impression: Neck pain Dementia Qualifiers: Dementia type: unspecified type Dementia behavioral disturbance: with behavioral disturbance Qualified Code(s): F03.91 - Unspecified dementia with behavioral disturbance Condition: Good Disposition: HOME, SELF-CARE Additional Instructions: Your 's device did not shock him tonight. He has not had a stroke. The CT scan of his head is normal. All of his labs are otherwise reassuring. We were not able to get a urine sample while he was here tonight. Please follow-up with his primary care doctor regarding your concerns. He should return to the emergency department immediately if he develops any new symptoms that are worrisome to you. Referrals: XU INMAN NP [Primary Care Provider] - Follow up as needed
[2018-10-24 22:22] LABS: ABSOLUTE BASOPHILS # (AUTO) 0.1 10^3/uL (0.0-0.2); ABSOLUTE EOSINOPHILS # (AUTO) 0.2 10^3/uL (0.0-0.6); ABSOLUTE LYMPHOCYTES (AUTO) 2.1 10^3/uL (0.5-4.7); ABSOLUTE NEUT (AUTO) 6.6 10^3/uL (1.7-8.2); BASOPHILS % (AUTO) 0.9 % (0-2); EOSINOPHILS % (AUTO) 1.7 % (0-6); HEMATOCRIT 37.5 % (37.9-51.0); HEMOGLOBIN 12.7 g/dL (13.5-17.0); LYMPHOCYTES % (AUTO) 21.2 % (13-45); MEAN CORPUSCULAR HEMOGLOBIN 29.4 pg (27.0-33.4); MEAN CORPUSCULAR HGB CONC 33.9 g/dL (32.0-36.0); MEAN CORPUSCULAR VOLUME 87 fl (80-97); MONOCYTES % (AUTO) 9.7 % (3-13); PLATELET COUNT 195 10^3/uL (150-450); RED BLOOD COUNT 4.33 10^6/uL (4.35-5.55); RED CELL DISTRIBUTION WIDTH 14.4 % (11.5-14.0); SEGMENTED NEUTROPHILS % (AUTO) 66.5 % (42-78); TOTAL CELLS COUNTED % (AUTO) 100 %; WHITE BLOOD COUNT 9.9 10^3/uL (4.0-10.5)
[2018-10-24 22:25] LABS: ANION GAP 8 (5-19); BLOOD UREA NITROGEN 32 mg/dL (7-20); CALCIUM 9.5 mg/dL (8.4-10.2); CARBON DIOXIDE 31 mmol/L (22-30); CHLORIDE 102 mmol/L (98-107); GLUCOSE 140 mg/dL (75-110); POTASSIUM 4.9 mmol/L (3.6-5.0)
[2018-10-25 00:29] VITALS: BP 128/60
--- NOTE | 2018-10-25 08:11 | EKG REPORT ---
SEVERITY:- ABNORMAL ECG - VENTRICULAR-PACED COMPLEXES : Confirmed by: Mason Meyer MD 25-Oct-2018 08:10:17
== END 2018-10-25 00:20 | disposition home or self-care (01) ==
LOC: ER 21:08
DX: M54.2 Cervicalgia (principal); F03.91 Unspecified dementia, unspecified severity, with behavioral disturbance; I50.9 Heart failure, unspecified; I11.0 Hypertensive heart disease with heart failure; J44.9 Chronic obstructive pulmonary disease, unspecified; Z95.1 Presence of aortocoronary bypass graft; Z95.810 Presence of automatic (implantable) cardiac defibrillator; Z98.84 Bariatric surgery status
CPT/HCPCS: 36415; 70450; 71045; 80048; 84484; 85025; 93005; 93010; 99284

== ENCOUNTER 2018-11-14 18:26 | Emergency (ER) | payer MEDICARE, OTHER ==
[2018-11-14 19:30] VITALS: BP 119/61
[2018-11-14 19:36] LABS: INTERNATIONAL RATION (INR) 0.94; PROTHROMBIN TIME 13.1 SEC (11.4-15.4)
[2018-11-14 19:41] LABS: ALANINE AMINOTRANSFERASE 17 U/L (21-72); ALBUMIN 4.2 g/dL (3.5-5.0); ALKALINE PHOSPHATASE 75 U/L (38-126); ANION GAP 10 (5-19); ASPARTATE AMINO TRANSFERASE 48 U/L (17-59); BILIRUBIN,DIRECT 0.4 mg/dL (0.0-0.4); BILIRUBIN,TOTAL 0.5 mg/dL (0.2-1.3); BLOOD UREA NITROGEN 28 mg/dL (7-20); CALCIUM 9.3 mg/dL (8.4-10.2); CARBON DIOXIDE 31 mmol/L (22-30); CHLORIDE 99 mmol/L (98-107); GLUCOSE 121 mg/dL (75-110); POTASSIUM 4.2 mmol/L (3.6-5.0); SODIUM 139.9 mmol/L (137-145)
[2018-11-14 19:48] LABS: ABSOLUTE BASOPHILS # (AUTO) 0.1 10^3/uL (0.0-0.2); ABSOLUTE EOSINOPHILS # (AUTO) 0.2 10^3/uL (0.0-0.6); ABSOLUTE LYMPHOCYTES (AUTO) 1.9 10^3/uL (0.5-4.7); ABSOLUTE MONOCYTES (AUTO) 0.8 10^3/uL (0.1-1.4); ABSOLUTE NEUT (AUTO) 5.9 10^3/uL (1.7-8.2); BASOPHILS % (AUTO) 0.7 % (0-2); EOSINOPHILS % (AUTO) 2.3 % (0-6); HEMATOCRIT 36.6 % (37.9-51.0); HEMOGLOBIN 12.4 g/dL (13.5-17.0); LYMPHOCYTES % (AUTO) 21.3 % (13-45); MEAN CORPUSCULAR HEMOGLOBIN 29.4 pg (27.0-33.4); MEAN CORPUSCULAR HGB CONC 33.9 g/dL (32.0-36.0); MEAN CORPUSCULAR VOLUME 87 fl (80-97); MONOCYTES % (AUTO) 9.3 % (3-13); PLATELET COUNT 199 10^3/uL (150-450); RED BLOOD COUNT 4.23 10^6/uL (4.35-5.55); RED CELL DISTRIBUTION WIDTH 14.5 % (11.5-14.0); SEGMENTED NEUTROPHILS % (AUTO) 66.4 % (42-78); TOTAL CELLS COUNTED % (AUTO) 100 %; WHITE BLOOD COUNT 8.8 10^3/uL (4.0-10.5)
--- NOTE | 2018-11-14 19:52 | ER Document Report ---
ED General - General Chief Complaint: Fall Stated Complaint: FALL Time Seen by Provider: 11/14/18 19:25 Primary Care Provider: XU INMAN NP [Primary Care Provider] - Follow up in 3-5 days Notes: Patient is a 78 year old male with dementia that presents to the emergency department for chief complaint of frequent falls. History provided by the patient's . She states that the patient's been having several episodes of falling particular in the past week, he fell 3 times today, and he seems to be falling onto his left side mainly. Today he was in the bathroom she had difficult time getting him back up. This is been occurring more often over the past month. She denies noting any head injury when he fell, however he is on Plavix. She is on 100% sure. The patient at this time is denying having any pain, and has no complaints. He denies any numbness, weakness or tingling in any extremity. He has not been passing out with these episodes according to the patient's . Past Medical History: Dementia, CAD, diabetes mellitus, hypertension Past Surgical History: CABG, PCI with stenting Social History: Admits to smoking cigarettes, no alcohol or drug use. Family History: Reviewed and noncontributory for presenting illness Allergies: Reviewed, see documented allergy list. REVIEW OF SYSTEMS: Other than noted above, the 12 point review of systems was reviewed with the patient and were negative, all pertinent findings are included in the HPI. PHYSICAL EXAMINATION: Vital signs reviewed, nursing noted reviewed. GENERAL: Elderly male, no acute distress, no complaints HEAD: Atraumatic, normocephalic. EYES: Eyes appear normal, extraocular movements intact, sclera anicteric, conjunctiva are normal. ENT: nares patent, oropharynx clear without exudates. Moist mucous membranes. NECK: Normal range of motion, supple without lymphadenopathy LUNGS: Breath sounds clear to auscultation bilaterally and equal. No wheezes rales or rhonchi. HEART: Regular rate and rhythm without murmurs ABDOMEN: Soft, nontender, normoactive bowel sounds. No rebound, guarding, or rigidity. No masses appreciated. EXTREMITIES: Nontender, good range of motion, no pitting or edema. Patient is able to flex the hip without difficulty, there is no gross deformities noted, able to bend the knees, and left arms up without difficulty or pain. NEUROLOGICAL: No focal neurological deficits. Moves all extremities spontaneously Motor and sensory grossly intact on exam. PSYCH: Normal mood, normal affect. SKIN: Warm, Dry, normal turgor, there is areas of ecchymosis on the upper and lower extremities., Various degrees of healing. TRAVEL OUTSIDE OF THE [place] IN LAST 30 DAYS: No - Related Data Allergies/Adverse Reactions: atorvastatin calcium [From Lipitor] Adverse Reaction (Intermediate, Verified 10/07/18 11:48) myopathy Past Medical History - Social History Smoking Status: Unknown if Ever Smoked Family History: Reviewed & Not Pertinent Patient has suicidal ideation: No Patient has homicidal ideation: No - Past Medical History Cardiac Medical History: Reports: Hx Congestive Heart Failure, Hx Hypertension Pulmonary Medical History: Reports: Hx COPD Renal/ Medical History: Denies: Hx Peritoneal Dialysis Psychiatric Medical History: Reports: Hx Dementia, Hx Depression Past Surgical History: Reports: Hx Cardiac Catheterization, Hx Cardiac Surgery - 5 bypass, Hx Coronary Stent - X2, last stent on 07/21/2015., Hx Gastric Bypass Surgery - 5 vessel CABG in 2002, Hx Open Heart Surgery - Immunizations Immunizations up to date: Yes Hx Diphtheria, Pertussis, Tetanus Vaccination: Yes Physical Exam - Vital signs Vitals: Temp Pulse Resp BP Pulse Ox 98.0 F 71 20 128/72 H 100 11/14/18 18:28 11/14/18 18:28 11/14/18 18:28 11/14/18 18:28 11/14/18 18:28 Course - Re-evaluation Re-evalutation: Patient seen and examined vital signs reviewed. Laboratory data and imaging were ordered as appropriate for the patient's presen ting symptoms and complaint, with consideration of any critical or life threatening conditions that may be associated with their obtained history and exam as noted above. Results were reviewed when available and demonstrated unremarkable blood work, negative urinalysis, negative CT imaging of the head and cervical spine that were ordered for the patient's frequent falls, and x-ray of the pelvis was also negative. The patient was re-evaluated and was stable, and was not complaining of any pain, and wishing to be discharged at this time I discussed with the patient's , she was agreeable to discharge, and follow-up with primary care physician to set up for physical therapy due to his frequent falls. Evaluation was most consistent with frequent falls, upper extremity contusion Results were discussed with the patient at this point, after careful consideration I feel that that patient can be discharged from the emergency department, the patient was educated treatments and reasons to return to the emergency department based on their presumed diagnosis as noted above, they were advised to followup with a primary care physician in 2-3 days. Patient was agreeable to plan of care. *Note is created using voice recognition software and may contain spelling, syntax or grammatical errors. Laboratory 11/14/18 11/14/18 11/14/18 18:39 18:39 18:39 WBC 8.8 RBC 4.23 L Hgb 12.4 L Hct 36.6 L MCV 87 MCH 29.4 MCHC 33.9 RDW 14.5 H Plt Count 199 Seg Neutrophils % 66.4 Lymphocytes % 21.3 Monocytes % 9.3 Eosinophils % 2.3 Basophils % 0.7 Absolute Neutrophils 5.9 Absolute Lymphocytes 1.9 Absolute Monocytes 0.8 Absolute Eosinophils 0.2 Absolute Basophils 0.1 PT 13.1 INR 0.94 Sodium 139.9 Potassium 4.2 Chloride 99 Carbon Dioxide 31 H Anion Gap 10 BUN 28 H Creatinine 1.55 H Est GFR ( Amer) 53 L Est GFR (Non-Af Amer) 43 L Glucose 121 H Calcium 9.3 Total Bilirubin 0.5 Direct Bilirubin 0.4 Neonat Total Bilirubin Not Reportable Neonat Direct Bilirubin Not Reportable Neonat Indirect Bili Not Reportable AST 48 ALT 17 L Alkaline Phosphatase 75 Total Protein 7.0 Albumin 4.2 Urine Color Urine Appearance Urine pH Ur Specific [place] Urine Protein Urine Glucose (UA) Urine Ketones Urine Blood Urine Nitrite Urine Bilirubin Urine Urobilinogen Ur Leukocyte Esterase Urine WBC (Auto) Urine RBC (Auto) U Hyaline Cast (Auto) Squamous Epi Cells Auto Urine Mucus (Auto) Urine Ascorbic Acid 11/14/18 21:55 WBC RBC Hgb Hct MCV MCH MCHC RDW Plt Count Seg Neutrophils % Lymphocytes % Monocytes % Eosinophils % Basophils % Absolute Neutrophils Absolute Lymphocytes Absolute Monocytes Absolute Eosinophils Absolute Basophils PT INR Sodium Potassium Chloride Carbon Dioxide Anion Gap BUN Creatinine Est GFR ( Amer) Est GFR (Non-Af Amer) Glucose Calcium Total Bilirubin Direct Bilirubin Neonat Total Bilirubin Neonat Direct Bilirubin Neonat Indirect Bili AST ALT Alkaline Phosphatase Total Protein Albumin Urine Color YELLOW Urine Appearance CLEAR Urine pH 5.0 Ur Specific [place] 1.017 Urine Protein NEGATIVE Urine Glucose (UA) NEGATIVE Urine Ketones NEGATIVE Urine Blood NEGATIVE Urine Nitrite NEGATIVE Urine Bilirubin NEGATIVE Urine Urobilinogen NEGATIVE Ur Leukocyte Esterase NEGATIVE Urine WBC (Auto) 1 Urine RBC (Auto) 0 U Hyaline Cast (Auto) 1 Squamous Epi Cells Auto <1 Urine Mucus (Auto) RARE Urine Ascorbic Acid NEGATIVE Cervical Spine CT 11/14/18 19:58 IMPRESSION: 1. No acute intracranial hemorrhage. 2. No acute cervical fracture. Chest X-Ray 11/14/18 19:58 IMPRESSION: No evidence of acute cardiopulmonary disease. Head CT 11/14/18 19:58 IMPRESSION: 1. No acute intracranial hemorrhage. 2. No acute cervical fracture. Pelvis X-Ray 11/14/18 19:59 IMPRESSION: No acute findings are seen. However, please note that the generalized osteopenia limits evaluation for subtle or nondisplaced fractures. Consider cross-sectional imaging if there is high clinical concern or point tenderness. - Vital Signs Vital signs: Temp Pulse Resp BP Pulse Ox 98.0 F 71 25 H 119/61 97 11/14/18 18:28 11/14/18 18:28 11/14/18 19:01 11/14/18 19:01 11/14/18 19:01 - Laboratory Result Diagrams: 11/14/18 18:39 11/14/18 18:39 Laboratory results interpreted by me: 11/14/18 11/14/18 18:39 18:39 RBC 4.23 L Hgb 12.4 L Hct 36.6 L RDW 14.5 H Carbon Dioxide 31 H BUN 28 H Creatinine 1.55 H Est GFR ( Amer) 53 L Est GFR (Non-Af Amer) 43 L Glucose 121 H ALT 17 L - EKG Interpretation by Me Additional EKG results interpreted by me: EKG demonstrates dual paced rhythm, with a ventricular rate of 74 bpm, left axis deviation, QTC 493 ms, the setting of paced rhythm, no acute changes from prior EKG from 10/24/2018. Discharge - Discharge Clinical Impression: Fall Qualifiers: Encounter type: initial encounter Qualified Code(s): W19.XXXA - Unspecified fall, initial encounter Contusion of left arm Qualifiers: Encounter type: initial encounter Qualified Code(s): S40.022A - Contusion of left upper arm, initial encounter Condition: Stable Disposition: HOME, SELF-CARE Additional Instructions: Please use your cane as much as possible particularly outside the home and please call your primary care physician on Saturday to try to set up either home therapy or outpatient physical therapy to build up your strength particularly with balance. Referrals: XU INMAN NP [Primary Care Provider] - Follow up in 3-5 days
[2018-11-14] MEDS ORDERED: NORMAL SALINE 500 ML IV ONE (20:00)
--- NOTE | 2018-11-14 20:56 | RADIOLOGY REPORT (SQ) ---
CT BRAIN AND CERVICAL SPINE WITHOUT IV CONTRAST EXAM DATE: 11/14/2018 19:58 HISTORY: Trauma. COMPARISON: None. TECHNIQUE: CT scan of the brain and cervical spine without IV contrast. This exam was performed according to our departmental dose-optimization program, which includes automated exposure control, adjustment of the mA and/or kV according to patient size and/or use of iterative reconstruction technique. FINDINGS: BRAIN: The ventricles, cisterns, and sulci are unremarkable. No focal white matter lesions are seen. No evidence of acute infarction, intracranial hemorrhage, extra-axial fluid collection, or midline shift. No air-fluid levels are seen in the paranasal sinuses to suggest acute sinusitis. No depressed skull fracture. CERVICAL SPINE: No acute cervical fracture or prevertebral soft tissue swelling. There is straightening of the normal cervical lordosis, which may be due to cervical collar, muscle spasm, or patient positioning. Multilevel degenerative disc disease along with facet arthropathy is present. No advanced spinal canal stenosis is identified although there are multilevel disc bulges. IMPRESSION: 1. No acute intracranial hemorrhage. 2. No acute cervical fracture.
--- NOTE | 2018-11-14 21:14 | RADIOLOGY REPORT (SQ) ---
AP VIEW OF PELVIS HISTORY: Fall, possible left hip injury COMPARISON: None. FINDINGS: The proximal femurs are intact. No hip joint dislocations. The iliopubic and ilioischial lines are well-maintained. There is no SI joint or pubic symphysis diastases. The sacrum is obscured by overlying bowel gas. Vascular calcifications are present. Generalized osteopenia is present. IMPRESSION: No acute findings are seen. However, please note that the generalized osteopenia limits evaluation for subtle or nondisplaced fractures. Consider cross-sectional imaging if there is high clinical concern or point tenderness.
--- NOTE | 2018-11-14 21:15 | RADIOLOGY REPORT (SQ) ---
XR CHEST 1 VIEW HISTORY: Weakness. COMPARISON: 10/24/2018 FINDINGS: Stable cardiomegaly with left chest wall pacemaker. The lungs are clear. No pleural effusion or pneumothorax is seen. There are old right-sided rib fractures. There is unchanged elevation of the left hemidiaphragm. IMPRESSION: No evidence of acute cardiopulmonary disease.
[2018-11-14 22:17] LABS: APPEARANCE,URINE CLEAR; BILIRUBIN,URINE NEGATIVE (NEGATIVE); COLOR,URINE YELLOW; GLUCOSE, URINE NEGATIVE (NEGATIVE); KETONES,URINE NEGATIVE (NEGATIVE); LEUKOCYTE ESTERASE,URINE NEGATIVE (NEGATIVE); NITRITE,URINE NEGATIVE (NEGATIVE); PROTEIN,URINE NEGATIVE (NEGATIVE); URINE SPECIFIC GRAVITY 1.017; UROBILINOGEN,URINE NEGATIVE mg/dL (<2.0)
--- NOTE | 2018-11-14 22:42 | EKG REPORT ---
SEVERITY:- ABNORMAL ECG - A-V DUAL-PACED COMPLEXES W/ SOME INHIBITION : Confirmed by: Mason Meyer MD 14-Nov-2018 22:41:23
== END 2018-11-14 22:55 | disposition home or self-care (01) ==
LOC: ER 18:26
DX: S40.022A Contusion of left upper arm, initial encounter (principal); F03.90 Unspecified dementia, unspecified severity, without behavioral disturbance, psychotic disturbance, mood disturbance, and anxiety; W19.XXXA Unspecified fall, initial encounter; Z91.81 History of falling; F17.210 Nicotine dependence, cigarettes, uncomplicated; I50.9 Heart failure, unspecified; I11.0 Hypertensive heart disease with heart failure; J44.9 Chronic obstructive pulmonary disease, unspecified
CPT/HCPCS: 93005; 99285; 96360; 36415; 85025; 85610; 80053; 81001; 71045; 72170; 70450; 72125; 93010; J7040

== ENCOUNTER 2018-11-24 19:11 | Emergency (ER) | payer MEDICARE, OTHER ==
--- NOTE | 2018-11-24 21:24 | EKG REPORT ---
SEVERITY:- ABNORMAL ECG - ATRIAL AND VENTRICULAR-PACED COMPLEXES : Confirmed by: Carmen Mcdonough MD 24-Nov-2018 21:23:47
[2018-11-24 21:50] LABS: APPEARANCE,URINE CLEAR; BILIRUBIN,URINE NEGATIVE (NEGATIVE); COLOR,URINE YELLOW; GLUCOSE, URINE NEGATIVE (NEGATIVE); KETONES,URINE NEGATIVE (NEGATIVE); LEUKOCYTE ESTERASE,URINE NEGATIVE (NEGATIVE); NITRITE,URINE NEGATIVE (NEGATIVE); PROTEIN,URINE NEGATIVE (NEGATIVE); URINE SPECIFIC GRAVITY 1.016; UROBILINOGEN,URINE NEGATIVE mg/dL (<2.0)
[2018-11-24 22:05] LABS: HEMATOCRIT 37.8 % (37.9-51.0); HEMOGLOBIN 12.8 g/dL (13.5-17.0); MEAN CORPUSCULAR HEMOGLOBIN 29.1 pg (27.0-33.4); MEAN CORPUSCULAR HGB CONC 33.9 g/dL (32.0-36.0); MEAN CORPUSCULAR VOLUME 86 fl (80-97); PLATELET COUNT 229 10^3/uL (150-450); RED CELL DISTRIBUTION WIDTH 14.7 % (11.5-14.0); WHITE BLOOD COUNT 11.8 10^3/uL (4.0-10.5)
[2018-11-24 22:06] LABS: ALANINE AMINOTRANSFERASE 35 U/L (21-72); ALBUMIN 4.1 g/dL (3.5-5.0); ALKALINE PHOSPHATASE 81 U/L (38-126); ANION GAP 12 (5-19); ASPARTATE AMINO TRANSFERASE 27 U/L (17-59); BILIRUBIN,DIRECT 0.2 mg/dL (0.0-0.4); BILIRUBIN,TOTAL 0.6 mg/dL (0.2-1.3); BLOOD UREA NITROGEN 34 mg/dL (7-20); CALCIUM 9.5 mg/dL (8.4-10.2); CARBON DIOXIDE 25 mmol/L (22-30); CHLORIDE 101 mmol/L (98-107); GLUCOSE 109 mg/dL (75-110); POTASSIUM 4.2 mmol/L (3.6-5.0); SODIUM 138.1 mmol/L (137-145); TOTAL PROTEIN 6.4 g/dL (6.3-8.2)
[2018-11-24 22:07] LABS: ACETAMINOPHEN < 10 ug/mL (10-30); ALCOHOL < 10 mg/dL (NONE DETECTED); SALICYLATE < 1.0 mg/dL (2.0-20.0)
[2018-11-24 22:10] LABS: URINE AMPHETAMINES SCREEN NEGATIVE; URINE BARBITURATES SCREEN NEGATIVE; URINE BENZODIAZEPINES SCREEN UNCONFIRMED POSITIVE; URINE COCAINE SCREEN NEGATIVE; URINE MARIJUANA (THC) SCREEN NEGATIVE; URINE METHADONE SCREEN NEGATIVE; URINE PHENCYCLIDINE SCREEN NEGATIVE
[2018-11-24] MEDS ORDERED: OLANZAPINE 5 MG TAB.RAPDIS PO ONE (22:26)
--- NOTE | 2018-11-24 22:28 | ER Document Report ---
ED General - General Chief Complaint: Fall Stated Complaint: PSYCH EVAL Time Seen by Provider: 11/24/18 21:04 Primary Care Provider: XU INMAN NP [Primary Care Provider] - Follow up as needed Cannot obtain history due to: Dementia Notes: Patient is a 78-year-old male with a past medical history of coronary artery disease, hypertension, hyperlipidemia, dementia, presents with family due to being increasingly combative and agitated over the last 6 weeks. The patient is demented, does not provide meaningful history. Per family at the bedside which includes his sister and over the last 4-6 weeks the patient has become increasingly erratic in his behaviors. They state that he is fighting, refusing to take his medications, often becoming violent. The patient also falls freq uently sometimes several times daily. Symptoms are becoming progressively worse and nothing seems to be triggering them. Nothing seems to improve his symptoms. The patient does not following with a primary care doctor on a regular basis. Family has not made any efforts to get the patient to an assisted or nursing facility. Nothing is necessarily new or different today other than the family feels like they can no longer care for him at home. They are requesting a psychiatric consultation. The patient did fall today striking his head and neck. History is otherwise limited secondary to the patient's degree of dementia. TRAVEL OUTSIDE OF THE [place] IN LAST 30 DAYS: No - Related Data Allergies/Adverse Reactions: atorvastatin calcium [From Lipitor] Adverse Reaction (Intermediate, Verified 10/07/18 11:48) myopathy Past Medical History - General Information source: Relative - Social History Smoking Status: Former Smoker Frequency of alcohol use: None Drug Abuse: None Lives with: Spouse/Significant other Family History: Reviewed & Not Pertinent Patient has suicidal ideation: No Patient has homicidal ideation: No - Past Medical History Cardiac Medical History: Reports: Hx Congestive Heart Failure, Hx Hypertension Pulmonary Medical History: Reports: Hx COPD Renal/ Medical History: Denies: Hx Peritoneal Dialysis Psychiatric Medical History: Reports: Hx Dementia, Hx Depression Past Surgical History: Reports: Hx Cardiac Catheterization, Hx Cardiac Surgery - 5 bypass, Hx Coronary Stent - X2, last stent on 07/21/2015., Hx Gastric Bypass Surgery - 5 vessel CABG in 2002, Hx Open Heart Surgery - Immunizations Immunizations up to date: Yes Hx Diphtheria, Pertussis, Tetanus Vaccination: Yes Review of Systems - Review of Systems -: Yes ROS unobtainable due to patient's medical condition - Secondary to advanced dementia Physical Exam - Vital signs Vitals: Resp Pulse Ox 17 96 11/24/18 19:22 11/24/18 19:22 Interpretation: Normal Notes: PHYSICAL EXAMINATION: GENERAL: Somewhat agitated, unable to sit still. HEAD: Atraumatic, normocephalic. EYES: Pupils equal round and reactive to light, extraocular movements intact, sclera anicteric, conjunctiva are normal. ENT: nares patent, no oral pharyngeal trauma. No hemotympanum, no Rodrigues's sign, no raccoon eyes. NECK: No midline cervical spine tenderness. Patient able to move their head to 45 bilaterally without any discomfort. LUNGS: Breath sounds clear to auscultation bilaterally and equal. No wheezes rales or rhonchi. HEART: Regular rate and rhythm without murmurs. CHEST WALL: No ecchymosis over the chest wall. ABDOMEN: Soft, nontender, normoactive bowel sounds. No guarding, no rebound. No abdominal bruising EXTREMITIES: Normal range of motion, no pitting or edema. No long bone deformities. BACK: No midline spinal tenderness, step-offs, or deformities. NEUROLOGICAL: Moves all extremities spontaneously on command PSYCH: Oriented only to person, agitated, fidgeting in the bed SKIN: Warm, Dry, normal turgor, diffuse abrasions over the bilateral forearms, bilateral lower extremities and forehead Course - Re-evaluation Re-evalutation: 11/24/18 22:26 Patient presents with family who feels that they can no longer care for him at home. The patient has had progressive dementia, noted by family to become increasingly combative, refusing medications, falling recurrently. Patient has had 3 visits for falls to this emergency department in the past 30 days. The patient is profoundly demented on assessment, knows only his name. Noted to be picking at his skin, pulling the sheets off, trying to undress himself. He does not respond to redirection. The patient has multiple areas of abrasions, cont usions, and clearly has signs of repeated falls. He does take clopidogrel, CT of the head and cervical spine is pending given his advanced age and the recurrent falls with associated head trauma. Labs overall unremarkable, no evidence of urinary tract infection, chronic anemia or electrode imbalances. She will be placed in a belt restraints and given 10 mg of oral olanzapine to try to calm him and prevent him from getting out of the bed and falling. I have advised the family that if they do not feel comfortable taking the patient home her only option is to have him remain here in the emergency department await social work placement as we does not qualify for inpatient stay. 11/25/18 03:42 - Vital Signs Vital signs: Temp Pulse Resp BP Pulse Ox 97.8 F 79 20 157/77 H 96 11/24/18 19:28 11/24/18 19:28 11/24/18 20:01 11/24/18 20:01 11/24/18 20:01 - Laboratory Result Diagrams: 11/24/18 21:29 11/24/18 21:29 Laboratory results interpreted by me: 11/24/18 11/24/18 21:29 21:29 WBC 11.8 H Hgb 12.8 L Hct 37.8 L RDW 14.7 H Abs Neuts (Manual) 8.9 H BUN 34 H Creatinine 1.34 H Est GFR (Non-Af Amer) 51 L Salicylates < 1.0 L Acetaminophen < 10 L - Diagnostic Test Radiology reviewed: Image reviewed, Reports reviewed Radiology results interpreted by me: 11/25/18 03:41 CT head: No acute intracranial bleed or mass - EKG Interpretation by Me Additional EKG results interpreted by me: 11/25/18 03:41 Atrially and ventricularly paced complexes, rate 77. Discharge - Discharge Clinical Impression: Agitation Dementia Qualifiers: Dementia type: unspecified type Dementia behavioral disturbance: with behavioral disturbance Qualified Code(s): F03.91 - Unspecified dementia with behavioral disturbance Referrals: XU INMAN NP [Primary Care Provider] - Follow up as needed
[2018-11-24 22:34] LABS: ABSOLUTE LYMPHOCYTES# (MANUAL) 1.9 10^3/uL (0.5-4.7); ABSOLUTE MONOCYTES # (MANUAL) 0.8 10^3/uL (0.1-1.4); ABSOLUTE NEUTROPHILS# (MANUAL) 8.9 10^3/uL (1.7-8.2); BASOPHILS % (MANUAL) 1 % (0-2); EOSINOPHILS % (MANUAL) 1 % (0-6); LYMPHOCYTES % (MANUAL) 16 % (13-45); MONOCYTES % (MANUAL) 7 % (3-13); PLATELET COMMENT ADEQUATE; SEGMENTED NEUTROPHILS % (MAN) 75 % (42-78); TOTAL CELLS COUNTED 100
--- NOTE | 2018-11-24 23:42 | RADIOLOGY REPORT (SQ) ---
EXAM DESCRIPTION: CT CERVICAL SPINE WITHOUT IV CONTRAST COMPLETED DATE/TME: 11/24/2018 21:05 CLINICAL HISTORY: Pain. 78 years Male, fall, trauma Comparison:11/14/2018 Technique: No contrast. Coronal and sagittal reformat. This exam was performed according to our departmental dose-optimization program, which includes automated exposure control, adjustment of the mA and/or kV according to patient size and/or use of iterative reconstruction technique.[facility]: Dose Right [facility]: CareDose [facility]: Dose Right [facility]: Teradose 4D [facility]: MobileGlobe LIMITATIONS: None Findings: Moderate disc bulge at C5-C6, 0.2 cm degenerative C5 retrolisthesis, multilevel moderate spondylosis, [id number] C5-C6 spinal canal stenosis, moderate bilateral C6 foraminal stenosis, left more than right, and bony demineralization. Stable...Normal curvature. No fracture. Normal vertebral heights. Partially imaged nuchal soft tissues, inferior cranium, and upper thorax appear otherwise grossly intact. IMPRESSION: No acute findings.
--- NOTE | 2018-11-24 23:46 | RADIOLOGY REPORT (SQ) ---
EXAM DESCRIPTION: CT HEAD WITHOUT IV CONTRAST COMPLETED DATE/TME: 11/24/2018 21:05 CLINICAL HISTORY: 78 years Male, fall, trauma COMPARISON:11/14/2018 TECHNIQUE: No contrast. Coronal and sagittal reformat. This exam was performed according to our departmental dose-optimization program, which includes automated exposure control, adjustment of the mA and/or kV according to patient size and/or use of iterative reconstruction technique. FINDINGS: No hemorrhage or infarct. No mass, mass effect, or midline shift. White matter microangiopathy, parenchymal volume loss, and atherosclerosis. Brain and extra-axial structures appear otherwise intact. IMPRESSION: No acute findings.
--- NOTE | 2018-11-25 10:19 | ER Document Report ---
Doctor's Note Notes: 11/25/18 10:15 Rounds: Chart reviewed. Patient is sleeping. at bedside and she was interviewed. Patient is here for 2 major reasons: He has been experiencing significant falls more and more frequently over the past few months and, secondly, he has been becoming much more agitated and combative. He does have dementia. Not on any new medications that would cause him to fall or have a change in his behavior. He had a CT scan of his head and neck here last night and they were negative. Lab studies were all essentially negative as well, with the exception of a white count of 11,800. No signs of infection anywhere. EKG shows a ventricular paced rhythm. Patient goes to see Natty Cox for primary care. Patient is literally covered with abrasions and bruises, especially to his arms. says she is unable to take care of him at home and longer. Francisco Oneal MD
[2018-11-25 12:04] VITALS: BP 195/87
== END 2018-11-25 13:11 | disposition home or self-care (01) ==
LOC: ER 19:11
DX: R45.1 Restlessness and agitation (principal); S09.90XA Unspecified injury of head, initial encounter; S19.9XXA Unspecified injury of neck, initial encounter; F03.91 Unspecified dementia, unspecified severity, with behavioral disturbance; W19.XXXA Unspecified fall, initial encounter; Y92.009 Unspecified place in unspecified non-institutional (private) residence as the place of occurrence of the external cause; Z91.81 History of falling; I50.9 Heart failure, unspecified; E78.5 Hyperlipidemia, unspecified; I25.10 Atherosclerotic heart disease of native coronary artery without angina pectoris; I11.0 Hypertensive heart disease with heart failure; J44.9 Chronic obstructive pulmonary disease, unspecified; Z95.1 Presence of aortocoronary bypass graft; Z98.84 Bariatric surgery status
CPT/HCPCS: 93005; 99285; 36415; 80307 ×4; 85025; 80053; 81001; 70450; 72125; 93010; A9270; J3490